=== PATIENT | female | born 1995 | race Caucasian/White ===

== ENCOUNTER → 2017-03-14 | Outpatient (CLI) | payer BC | LOC: COL.RAD 12:55 | DX: M79.671 Pain in right foot (principal); M89.8X7 Other specified disorders of bone, ankle and foot ==

== ENCOUNTER → 2019-01-30 | Outpatient (CLI) | payer BC | LOC: COL.RAD 13:36 | DX: R42 Dizziness and giddiness (principal) | CPT/HCPCS: Q9967 ==

== ENCOUNTER 2019-03-21 21:36 | Emergency (ER) | payer BC ==
[~2019-03-21] VITALS: Ht 160 cm; Wt 84.1 kg
[2019-03-21 21:45] VITALS: BP 134/80; TEMP 98.3
[2019-03-21 23:22] VITALS: PULSE 70
== END 2019-03-21 23:22 | disposition home or self-care (01) ==
LOC: COL.ER 21:36
DX: G43.909 Migraine, unspecified, not intractable, without status migrainosus (principal); H57.02 Anisocoria